=== PATIENT | male | born 1995 | race Caucasian/White ===

== ENCOUNTER 2017-08-01 19:39 | Emergency (ER) | payer SELFPAY ==
[2017-08-01 20:02] VITALS: BP 116/67
[2017-08-01] MEDS ORDERED: Ondansetron 4 MG Tab.DIS PO ONE (20:17)
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
== END 2017-08-01 20:58 | disposition home or self-care (01) ==
LOC: DL.ED 19:39
DX: S06.0X0A Concussion without loss of consciousness, initial encounter (principal); V29.9XXA Motorcycle rider (driver) (passenger) injured in unspecified traffic accident, initial encounter
CPT/HCPCS: 70450; 99283; A9270